=== PATIENT | female | born 1980 | race Caucasian/White ===

== ENCOUNTER 2018-03-20 18:26 | Inpatient (IN) | payer MEDICAID, OTHER ==
[2018-03-20] MEDS ORDERED: NACL 0.9% 1000 ML 1,000 ML IV ONE (18:42)
--- NOTE | 2018-03-20 19:12 | Emergency Department Report ---
ED Syncope HPI - General Chief Complaint: Syncope Stated Complaint: AMS Time Seen by Provider: 03/20/18 18:41 Source: patient, family, old records Exam Limitations: no limitations - History of Present Illness Initial Comments: 37 yo female with a past medical history multiple DVTs and PEs, gestational diabetes, and previously diagnosed hypothyroidism presents to Hospital complaints of syncopal episode while at [employer]. Patient was brought in by her by private vehicle. He states that they were in a process of eating, she left to go to the bathroom but was taking longer to usual. He then received a text from her stating that she does not feel good so he went to check on her. He found her unresponsive and pale appearing on the bathroom floor. He placed her in his car then drove her to the hospital. Her Accu-Chek was 154 upon arrival. She is alert and oriented 3 but appears generalized weak and fatigued. She reports for the past 3 days she's had mild to moderate intermittent left-sided sticking chest pain lasted for only a second at a time before resolving. No aggravating or alleviating factors reported. Positive nausea without vomiting. She states today she began to have some shortness of breath. Patient reports that she was first diagnosed with a blood clot during her 8 years ago and has had recurrent blood clots since. She stopped taking anticoagulants approximately 2 years ago because she stopped following up with a physician. She does not have a filter. She also states she used to have recurrent syncopal episodes with the last approximately 2 years ago. Patient also reports that she no longer takes Synthroid or diabetes medications since her last delivery 2 years ago. She is not currently on control, denies recent travel, calf tenderness, edema, leg asymmetry, or diagnosis of underlying blood clotting disorder. As per medical record d/c summary 09/01/15: History of antiphospholipid antibody syndrome Pt admitted for near syncopal episodes and s/p work up with Cardiology, hematology, and neurology. Neuro dx was TIAs. - Related Data Allergies/Adverse Reactions: Allergies No Known Allergies Allergy (Verified 12/12/15 21:27) Home Medications: Ambulatory Orders Aspirin [Aspirin BABY CHEW TAB] 81 mg PO QDAY 08/27/15 Levothyroxine [Synthroid] 50 mcg PO DAILY 12/06/15 Pnv,Calcium 72/Iron/Folic Acid [Pnv Plus Multivit Tab] 1 tab PO DAILY 12/06/15 glyBURIDE [Glyburide] 2 tab PO BID 12/06/15 Enoxaparin [Lovenox] 40 mg SQ QDAY #30 syringe 12/21/15 ED Review of Systems ROS: Stated complaint: AMS Other details as noted in HPI Comment: All other systems reviewed and negative ED Past Medical Hx - Past Medical History Hx Hypertension: No Hx Congestive Heart Failure: No Hx Diabetes: Yes (gestational) Hx Deep Vein Thrombosis: No Hx Renal Disease: No Hx Sickle Cell Disease: No Hx Seizures: No Hx Asthma: No Hx COPD: No Hx HIV: No Additional medical history: DVT, pe. hypothyrodism - Social History Smoking Status: Never Smoker Substance Use Type: None - Medications Home Medications: Home Medications Medication Instructions Recorded Confirmed Last Taken Type Aspirin [Aspirin BABY CHEW TAB] 81 mg PO QDAY 08/27/15 12/18/15 12/16/15 History Levothyroxine [Synthroid] 50 mcg PO DAILY 12/06/15 12/18/15 12/17/15 History Pnv,Calcium 72/Iron/Folic Acid 1 tab PO DAILY 12/06/15 12/18/15 12/17/15 History [Pnv Plus Multivit Tab] glyBURIDE [Glyburide] 2 tab PO BID 12/06/15 12/18/15 12/17/15 History Enoxaparin [Lovenox] 40 mg SQ QDAY #30 syringe 12/21/15 Unknown Rx ED Physical Exam - General Limitations: No Limitations - Other Other exam information: General: No limitations, patient is alert in no acute distress Head exam: Atraumatic, normocephalic Eyes exam: Normal appearance ENT: Moist mucous membrane, normal oropharynx Neck exam: Normal inspection, full range of motion, no meningismus nontender Respiratory exam: Clear to auscultation bilateral, no wheezes, rales, crackles, minimal left anterior chest wall tenderness Cardiovascular: Normal rate and rhythm, normal heart sounds Abdomen: Soft, nondistended, and nontender, with normal bowel sounds, no rebound, or guarding Extremity: Full range of motion normal inspection no deformity, no calf tenderness or edema. Back: Normal Inspection, full range of motion, no tenderness Neurologic: Alert, oriented x3, cranial nerves intact, no motor or sensory deficit Psychiatric: normal affect, normal mood Skin: Warm, dry, intact ED Course Vital Signs 03/20/18 03/20/18 03/20/18 18:27 18:40 18:48 Temperature 98 F Pulse Rate 88 78 Respiratory 18 20 Rate Blood Pressure 119/69 Blood Pressure [Left] O2 Sat by Pulse 100 98 Oximetry 03/20/18 03/20/18 03/20/18 19:43 19:46 19:48 Temperature 98.4 F Pulse Rate 85 84 83 Respiratory 19 18 21 Rate Blood Pressure 109/56 109/56 Blood Pressure 106/62 [Left] O2 Sat by Pulse 98 96 97 Oximetry ED Medical Decision Making - Lab Data Result diagrams: 03/20/18 19:09 03/20/18 19:09 Lab Results 03/20/18 03/20/18 03/20/18 Range/Units 19:09 19:09 19:09 WBC 8.3 (4.5-11.0) K/mm3 RBC 4.44 (3.65-5.03) M/mm3 Hgb 13.7 (10.1-14.3) gm/dl Hct 38.8 (30.3-42.9) % MCV 88 (79-97) fl MCH 31 (28-32) pg MCHC 35 H (30-34) % RDW 12.3 L (13.2-15.2) % Plt Count 296 (140-440) K/mm3 Lymph % (Auto) 21.7 (13.4-35.0) % [place] % (Auto) 4.9 (0.0-7.3) % Eos % (Auto) 0.9 (0.0-4.3) % Baso % (Auto) 0.5 (0.0-1.8) % Lymph # 1.8 (1.2-5.4) K/mm3 [place] # 0.4 (0.0-0.8) K/mm3 Eos # 0.1 (0.0-0.4) K/mm3 Baso # 0.0 (0.0-0.1) K/mm3 Seg Neutrophils % 72.0 H (40.0-70.0) % Seg Neutrophils # 6.0 (1.8-7.7) K/mm3 D-Dimer (0-234) ng/mlDDU Sodium 138 (137-145) mmol/L Potassium 3.7 (3.6-5.0) mmol/L Chloride 98.8 (98-107) mmol/L Carbon Dioxide 28 (22-30) mmol/L Anion Gap 15 mmol/L BUN 10 (7-17) mg/dL Creatinine 0.6 L (0.7-1.2) mg/dL Estimated GFR > 60 ml/min BUN/Creatinine Ratio 17 % Glucose 150 H (65-100) mg/dL Calcium 9.3 (8.4-10.2) mg/dL Total Bilirubin 0.60 (0.1-1.2) mg/dL AST 32 (5-40) units/L ALT 45 (7-56) units/L Alkaline Phosphatase 95 (35-129) units/L Total Protein 6.9 (6.3-8.2) g/dL Albumin 4.2 (3.9-5) g/dL Albumin/Globulin Ratio 1.6 % TSH 4.770 H (0.270-4.200) mlU/mL HCG, Quant (0-4) mIU/mL Plasma/Serum Alcohol (0-0.07) % 03/20/18 03/20/18 03/20/18 Range/Units 19:09 19:09 19:09 WBC (4.5-11.0) K/mm3 RBC (3.65-5.03) M/mm3 Hgb (10.1-14.3) gm/dl Hct (30.3-42.9) % MCV (79-97) fl MCH (28-32) pg MCHC (30-34) % RDW (13.2-15.2) % Plt Count (140-440) K/mm3 Lymph % (Auto) (13.4-35.0) % [place] % (Auto) (0.0-7.3) % Eos % (Auto) (0.0-4.3) % Baso % (Auto) (0.0-1.8) % Lymph # (1.2-5.4) K/mm3 [place] # (0.0-0.8) K/mm3 Eos # (0.0-0.4) K/mm3 Baso # (0.0-0.1) K/mm3 Seg Neutrophils % (40.0-70.0) % Seg Neutrophils # (1.8-7.7) K/mm3 D-Dimer 181.54 (0-234) ng/mlDDU Sodium (137-145) mmol/L Potassium (3.6-5.0) mmol/L Chloride (98-107) mmol/L Carbon Dioxide (22-30) mmol/L Anion Gap mmol/L BUN (7-17) mg/dL Creatinine (0.7-1.2) mg/dL Estimated GFR ml/min BUN/Creatinine Ratio % Glucose (65-100) mg/dL Calcium (8.4-10.2) mg/dL Total Bilirubin (0.1-1.2) mg/dL AST (5-40) units/L ALT (7-56) units/L Alkaline Phosphatase (35-129) units/L Total Protein (6.3-8.2) g/dL Albumin (3.9-5) g/dL Albumin/Globulin Ratio % TSH (0.270-4.200) mlU/mL HCG, Quant < 2 (0-4) mIU/mL Plasma/Serum Alcohol < 0.01 (0-0.07) % - EKG Data -: EKG Interpreted by Me (low voltage precordial leadas) EKG shows normal: sinus rhythm, axis (qrs axis 18), QRS complexes (qrsd 91), ST- T waves (flat ant lat t waves, no stemi) Rate: normal (83) - EKG Data When compared to previous EKG there are: no significant change (08/2016 (no change except ant lat t waves more upright and less flat at this time)) - Radiology Data Radiology results: report reviewed read by radiologist CT head: no acute sinus CT angio chest: No evidence of pulmonary embolus - Medical Decision Making Syncope Cause unknown at this time No signs of PE or acute intracranial abnormalities Labs, EKG, UA and also all unremarkable. Patient was admitted in the past for similar symptoms with last cardiac and neurologic workup performed in 2014. Pt received 1 NS in ed, toradol, and zofran pt will be admitted for obs and further eval - Differential Diagnosis vasovagal, anemia, PE, arrhythmia, /ectopic, hypoglycemia Critical Care Time: No Critical care attestation.: If time is entered above; I have spent that time in minutes in the direct care of this critically ill patient, excluding procedure time. ED Disposition Clinical Impression: Syncope, Elevated TSH Disposition: OP ADMIT IP TO THIS HOSP Is pt being admited?: Yes Condition: Stable Time of Disposition: 22:07 (Dr [place]/hosp)
[2018-03-20 19:28] LABS: Basophils % (Auto) 0.5 % (0.0-1.8); Eosinophils # (Auto) 0.1 K/mm3 (0.0-0.4); Eosinophils % (Auto) 0.9 % (0.0-4.3); Hematocrit 38.8 % (30.3-42.9); Hemoglobin 13.7 gm/dl (10.1-14.3); Lymphocytes # (Auto) 1.8 K/mm3 (1.2-5.4); Lymphocytes % (Auto) 21.7 % (13.4-35.0); Mean Corpuscular HGB Conc 35 % (30-34); Mean Corpuscular Hemoglobin 31 pg (28-32); Mean Corpuscular Volume 88 fl (79-97); Monocytes # (Auto) 0.4 K/mm3 (0.0-0.8); Monocytes % (Auto) 4.9 % (0.0-7.3); Platelet Count 296 K/mm3 (140-440); Red Blood Count 4.44 M/mm3 (3.65-5.03); Red Cell Distribution Width 12.3 % (13.2-15.2)
[2018-03-20 19:49] LABS: Alanine Aminotransferase 45 units/L (7-56); Albumin 4.2 g/dL (3.9-5); BUN/Creatinine Ratio 17; Blood Urea Nitrogen 10 mg/dL (7-17); Calcium 9.3 mg/dL (8.4-10.2); Hemolysis Index 5
[2018-03-20] MEDS ORDERED: TORADOL IV ONE (19:57)
[2018-03-20] MEDS ORDERED: ZOFRAN IV ONE (19:57)
[2018-03-20] MEDS ORDERED: SODIUM CHLORIDE FLUSH SYRINGE 10 ML IV PRN (22:45)
[2018-03-20] MEDS ORDERED: ZOFRAN IV PRN (22:45)
[2018-03-20] MEDS ORDERED: TYLENOL PO PRN (22:45)
[2018-03-20] MEDS ORDERED: PERCOCET 5/325 PO PRN (22:45)
--- NOTE | 2018-03-20 22:49 | History and Physical Report ---
History of Present Illness Date of examination: 03/20/18 History of present illness: 37-year-old, history of DVT, PE, recurrent syncope in the past comes emergency room physician was at a restaurant and did not feel well. She went to the bathroom and had a syncopal episode, the stated that lasted for at least 30 minutes. Also complaining of pain in her epigastric area which she describes a sharp pain, constant, intensity 4/10, no radiation, she can identify exacerbating or relieving factor. Patient states she had not had any syncopal episodes since the last 2 years. Denies vomiting, diaphoresis, palpitation, nausea Review of systems Constitutional: no weight loss, chills Ears, eyes, nose, mouth and throat: no nasal congestion, no nasal discharge, no sinus pressure, no vision change, no red eye. Neck: No neck pain or rigidity. Cardiovascular: no palpitations Respiratory: No cough, shortness of breath Gastrointestinal: no abdominal pain, hematochezia Genitourinary : no dysuria, frequency , no hematuria Musculoskeletal: no joint swelling or muscle ache Integumentary: no rash, no pruritis Neurological: no parathesias, no numbness, no focal weakness Endocrine: no cold or heat intolerance, no polyuria or polydipsia Hematologic/Lymphatic: no easy bruising, no easy bleeding, no gland swelling Allergic/Immunologic: no urticaria, no angioedema. PAST MEDICAL HISTORY: DVT, PE, recurrent syncope PAST SURGICAL HISTORY: Cholecystectomy SOCIAL HISTORY: Denies alcohol, tobacco, drugs FAMILY HISTORY: Hypertension Medications and Allergies Allergies Allergy/AdvReac Type Severity Reaction Status Date / Time No Known Allergies Allergy Verified 12/12/15 21:27 Home Medications Medication Instructions Recorded Confirmed Last Taken Type No Known Home Medications [No 03/20/18 03/20/18 Unknown History Reported Home Medications] Active Meds: Active Medications Acetaminophen (Tylenol) 650 mg PO Q4H PRN PRN Reason: Pain MILD(1-3)/Fever >100.5/MCCARTY Enoxaparin Sodium (Lovenox) 30 mg SUB-Q QDAY JUDAH Ondansetron HCl (Zofran) 4 mg IV Q8H PRN PRN Reason: Nausea And Vomiting Oxycodone/Acetaminophen (Percocet 5/325) 1 tab PO Q6H PRN PRN Reason: Pain, Moderate (4-6) Sodium Chloride (Sodium Chloride Flush Syringe 10 Ml) 10 ml IV BID JUDAH Sodium Chloride (Sodium Chloride Flush Syringe 10 Ml) 10 ml IV PRN PRN PRN Reason: LINE FLUSH Exam - Physical Exam Narrative exam: Gen. appearance: Patient lying in bed, no apparent distress HEENT: Normocephalic, atraumatic, pupils equally round and reactive to light, extraocular movement intact, and no sclericterus,. No JVD or thyromegaly or nodule,neck supple, no carotid bruit ,mucous membranes moist, no exudate or erythema Heart: S1, S2, regular rate and rhythm Lungs: Clear to auscultation bilaterally, breathing comfortable Abdomen: Positive bowel sounds, nontender, nondistended, no organomegaly Extremity: No edema, cyanosis, clubbing Skin: No rash, nodules, warm, dry Neuro: Oriented 3, cranial nerves II-12 intact, speech is fluent, motor and sensory intact - Constitutional Vitals: Temp Pulse Resp BP Pulse Ox 98.4 F 83 21 106/62 97 03/20/18 19:48 03/20/18 19:48 03/20/18 19:48 03/20/18 19:48 03/20/18 19:48 Results - Labs CBC & Chem 7: 03/20/18 19:09 03/20/18 19:09 Labs: Abnormal lab results 03/20/18 03/20/18 03/20/18 Range/Units 19:09 19:09 19:09 MCHC 35 H (30-34) % RDW 12.3 L (13.2-15.2) % Seg Neutrophils % 72.0 H (40.0-70.0) % Creatinine 0.6 L (0.7-1.2) mg/dL Glucose 150 H (65-100) mg/dL TSH 4.770 H (0.270-4.200) mlU/mL - Imaging and Cardiology CT scan - chest: report reviewed CT Scan - head: report reviewed Assessment and Plan Assessment Recurrent syncope Plan Admit to medicine Check cardiac enzymes, echo, consult cardiology DVT prophylaxis
[2018-03-20 23:58] LABS: Creatine Kinase MB < 1.0 ng/mL (0.0-4.0)
[2018-03-21 01:23] LABS: Bacteria,Urine 1+ /HPF (Negative); Bilirubin,Urine NEG (Negative); Blood,Urine NEG (Negative); Color,Urine Yellow (Yellow); Mucus,Urine FEW /HPF; Protein,Urine <15 mg/dL mg/dL (Negative); Urobilinogen,Urine < 2.0 mg/dL (<2.0)
[2018-03-21 01:35] LABS: Amphetamine Screen,Urine PRESUMPTIVE NEGATIVE; Benzodiazepines Screen,Urine PRESUMPTIVE NEGATIVE; Cannabinoid Screen,Urine PRESUMPTIVE NEGATIVE; Cocaine Screen,Urine PRESUMPTIVE NEGATIVE; Methadone Screen,Urine PRESUMPTIVE NEGATIVE; Opiate Screen,Urine PRESUMPTIVE NEGATIVE
[2018-03-21 06:16] LABS: Basophils # (Auto) 0.1 K/mm3 (0.0-0.1); Basophils % (Auto) 0.7 % (0.0-1.8); Eosinophils # (Auto) 0.1 K/mm3 (0.0-0.4); Eosinophils % (Auto) 1.7 % (0.0-4.3); Hematocrit 37.6 % (30.3-42.9); Hemoglobin 12.8 gm/dl (10.1-14.3); Lymphocytes % (Auto) 34.7 % (13.4-35.0); Mean Corpuscular HGB Conc 34 % (30-34); Mean Corpuscular Hemoglobin 31 pg (28-32); Mean Corpuscular Volume 89 fl (79-97); Monocytes # (Auto) 0.6 K/mm3 (0.0-0.8); Platelet Count 279 K/mm3 (140-440); Red Blood Count 4.21 M/mm3 (3.65-5.03); Red Cell Distribution Width 12.7 % (13.2-15.2)
[2018-03-21 06:36] LABS: BUN/Creatinine Ratio 16; Blood Urea Nitrogen 8 mg/dL (7-17); Calcium 8.8 mg/dL (8.4-10.2); Hemolysis Index 2
[2018-03-21 06:47] LABS: Creatine Kinase MB < 1.0 ng/mL (0.0-4.0)
[2018-03-21] MEDS: LOVENOX SUB-Q SCH (10:44)
[2018-03-21] MEDS: SODIUM CHLORIDE FLUSH SYRINGE 10 ML IV SCH (10:45)
--- NOTE | 2018-03-21 12:23 | Progress Note ---
<RIGOBERTO LOPEZ - Last Filed: 03/21/18 13:39> Assessment and Plan Assessment and plan: Patient is 37 year old woman who presented to the ED after having a syncopal episode which lasted about 30 minutes. Recurrent syncope Head CT results pending, Neurology consulted Epigastric abdominal pain Ct abdomen results pending Hyperglycemia A1C ordered Subclinical hypothyroidism Elevated TSH, T4 normal DVT prophylaxis Lovenox History Interval history: Pt seen and examined. No new complaints today. Labs, chart notes and nursing notes reviewed. Hospitalist Physical - Constitutional Vitals: Temp Pulse Resp BP Pulse Ox 97.8 F 75 18 109/58 95 03/21/18 08:04 03/21/18 08:12 03/21/18 08:04 03/21/18 08:04 03/21/18 08:04 General appearance: Present: no acute distress - EENT Eyes: Present: PERRL, EOM intact ENT: hearing intact, clear oral mucosa - Neck Neck: Present: supple, normal ROM - Respiratory Respiratory effort: normal Respiratory: bilateral: CTA - Cardiovascular Rhythm: regular Heart Sounds: Present: S1 & S2 - Extremities Extremities: no ischemia, No edema - Abdominal General gastrointestinal: soft, non-tender, non-distended - Integumentary Integumentary: Present: clear, warm, dry - Psychiatric Psychiatric: appropriate mood/affect, intact judgment & insight, cooperative - Neurologic Neurologic: CNII-XII intact, moves all extremities - Allied Health Allied health notes reviewed: nursing Results - Labs CBC & Chem 7: 03/21/18 05:39 03/21/18 05:39 Labs: Laboratory Last Values WBC 8.6 K/mm3 (4.5-11.0) 03/21/18 05:39 RBC 4.21 M/mm3 (3.65-5.03) 03/21/18 05:39 Hgb 12.8 gm/dl (10.1-14.3) 03/21/18 05:39 Hct 37.6 % (30.3-42.9) 03/21/18 05:39 MCV 89 fl (79-97) 03/21/18 05:39 MCH 31 pg (28-32) 03/21/18 05:39 MCHC 34 % (30-34) 03/21/18 05:39 RDW 12.7 % (13.2-15.2) L 03/21/18 05:39 Plt Count 279 K/mm3 (140-440) 03/21/18 05:39 Lymph % (Auto) 34.7 % (13.4-35.0) 03/21/18 05:39 [place] % (Auto) 7.0 % (0.0-7.3) 03/21/18 05:39 Eos % (Auto) 1.7 % (0.0-4.3) 03/21/18 05:39 Baso % (Auto) 0.7 % (0.0-1.8) 03/21/18 05:39 Lymph # 3.0 K/mm3 (1.2-5.4) 03/21/18 05:39 [place] # 0.6 K/mm3 (0.0-0.8) 03/21/18 05:39 Eos # 0.1 K/mm3 (0.0-0.4) 03/21/18 05:39 Baso # 0.1 K/mm3 (0.0-0.1) 03/21/18 05:39 Seg Neutrophils % 55.9 % (40.0-70.0) 03/21/18 05:39 Seg Neutrophils # 4.8 K/mm3 (1.8-7.7) 03/21/18 05:39 D-Dimer 181.54 ng/mlDDU (0-234) 03/20/18 19:09 Sodium 141 mmol/L (137-145) 03/21/18 05:39 Potassium 4.1 mmol/L (3.6-5.0) 03/21/18 05:39 Chloride 105.1 mmol/L (98-107) 03/21/18 05:39 Carbon Dioxide 24 mmol/L (22-30) 03/21/18 05:39 Anion Gap 16 mmol/L 03/21/18 05:39 BUN 8 mg/dL (7-17) 03/21/18 05:39 Creatinine 0.5 mg/dL (0.7-1.2) L 03/21/18 05:39 Estimated GFR > 60 ml/min 03/21/18 05:39 BUN/Creatinine Ratio 16 % 03/21/18 05:39 Glucose 96 mg/dL (65-100) 03/21/18 05:39 Calcium 8.8 mg/dL (8.4-10.2) 03/21/18 05:39 Total Bilirubin 0.60 mg/dL (0.1-1.2) 03/20/18 19:09 AST 32 units/L (5-40) 03/20/18 19:09 ALT 45 units/L (7-56) 03/20/18 19:09 Alkaline Phosphatase 95 units/L (35-129) 03/20/18 19:09 Total Creatine Kinase 98 units/L (30-135) 03/21/18 05:39 CK-MB (CK-2) < 1.0 ng/mL (0.0-4.0) 03/21/18 05:39 CK-MB (CK-2) Rel Index 1.0 (0-4) 03/21/18 05:39 Troponin T < 0.010 ng/mL (0.00-0.029) 03/21/18 05:39 Total Protein 6.9 g/dL (6.3-8.2) 03/20/18 19:09 Albumin 4.2 g/dL (3.9-5) 03/20/18 19:09 Albumin/Globulin Ratio 1.6 % 03/20/18 19:09 TSH 4.770 mlU/mL (0.270-4.200) H 03/20/18 19:09 HCG, Quant < 2 mIU/mL (0-4) 03/20/18 19:09 Urine Color Yellow (Yellow) 03/21/18 00:34 Urine Turbidity Clear (Clear) 03/21/18 00:34 Urine pH 7.0 (5.0-7.0) 03/21/18 00:34 Ur Specific Counce 1.039 (1.003-1.030) H 03/21/18 00:34 Urine Protein <15 mg/dl mg/dL (Negative) 03/21/18 00:34 Urine Glucose (UA) Neg mg/dL (Negative) 03/21/18 00:34 Urine Ketones Neg mg/dL (Negative) 03/21/18 00:34 Urine Blood Neg (Negative) 03/21/18 00:34 Urine Nitrite Neg (Negative) 03/21/18 00:34 Urine Bilirubin Neg (Negative) 03/21/18 00:34 Urine Urobilinogen < 2.0 mg/dL (<2.0) 03/21/18 00:34 Ur Leukocyte Esterase Neg (Negative) 03/21/18 00:34 Urine WBC (Auto) 2.0 /HPF (0.0-6.0) 03/21/18 00:34 Urine RBC (Auto) 3.0 /HPF (0.0-6.0) 03/21/18 00:34 U Epithel Cells (Auto) 29.0 /HPF (0-13.0) H 03/21/18 00:34 Urine Bacteria (Auto) 1+ /HPF (Negative) 03/21/18 00:34 Urine Mucus Few /HPF 03/21/18 00:34 Urine Opiates Screen Presumptive negative 03/21/18 00:34 Urine Methadone Screen Presumptive negative 03/21/18 00:34 Ur Barbiturates Screen Presumptive negative 03/21/18 00:34 Ur Phencyclidine Scrn Presumptive negative 03/21/18 00:34 Ur Amphetamines Screen Presumptive negative 03/21/18 00:34 U Benzodiazepines Scrn Presumptive negative 03/21/18 00:34 Urine Cocaine Screen Presumptive negative 03/21/18 00:34 U Marijuana (THC) Screen Presumptive negative 03/21/18 00:34 Drugs of Abuse Note Disclamer 03/21/18 00:34 Plasma/Serum Alcohol < 0.01 % (0-0.07) 03/20/18 19:09 <SHANEL GARCIA - Last Filed: 03/21/18 17:07> Assessment and Plan Assessment and plan: I saw and evaluated the patient. I agree with the findings and the plan of care as documented in the PA~note, with the following corrections and additions. Hospitalist Physical - Constitutional Vitals: Temp Pulse Resp BP Pulse Ox 98.0 F 82 20 109/59 98 03/21/18 15:22 03/21/18 15:22 03/21/18 15:22 03/21/18 15:22 03/21/18 15:22 Results - Labs CBC & Chem 7: 03/21/18 05:39 03/21/18 05:39 Labs: Laboratory Last Values WBC 8.6 K/mm3 (4.5-11.0) 03/21/18 05:39 RBC 4.21 M/mm3 (3.65-5.03) 03/21/18 05:39 Hgb 12.8 gm/dl (10.1-14.3) 03/21/18 05:39 Hct 37.6 % (30.3-42.9) 03/21/18 05:39 MCV 89 fl (79-97) 03/21/18 05:39 MCH 31 pg (28-32) 03/21/18 05:39 MCHC 34 % (30-34) 03/21/18 05:39 RDW 12.7 % (13.2-15.2) L 03/21/18 05:39 Plt Count 279 K/mm3 (140-440) 03/21/18 05:39 Lymph % (Auto) 34.7 % (13.4-35.0) 03/21/18 05:39 [place] % (Auto) 7.0 % (0.0-7.3) 03/21/18 05:39 Eos % (Auto) 1.7 % (0.0-4.3) 03/21/18 05:39 Baso % (Auto) 0.7 % (0.0-1.8) 03/21/18 05:39 Lymph # 3.0 K/mm3 (1.2-5.4) 03/21/18 05:39 [place] # 0.6 K/mm3 (0.0-0.8) 03/21/18 05:39 Eos # 0.1 K/mm3 (0.0-0.4) 03/21/18 05:39 Baso # 0.1 K/mm3 (0.0-0.1) 03/21/18 05:39 Seg Neutrophils % 55.9 % (40.0-70.0) 03/21/18 05:39 Seg Neutrophils # 4.8 K/mm3 (1.8-7.7) 03/21/18 05:39 D-Dimer 181.54 ng/mlDDU (0-234) 03/20/18 19:09 Sodium 141 mmol/L (137-145) 03/21/18 05:39 Potassium 4.1 mmol/L (3.6-5.0) 03/21/18 05:39 Chloride 105.1 mmol/L (98-107) 03/21/18 05:39 Carbon Dioxide 24 mmol/L (22-30) 03/21/18 05:39 Anion Gap 16 mmol/L 03/21/18 05:39 BUN 8 mg/dL (7-17) 03/21/18 05:39 Creatinine 0.5 mg/dL (0.7-1.2) L 03/21/18 05:39 Estimated GFR > 60 ml/min 03/21/18 05:39 BUN/Creatinine Ratio 16 % 03/21/18 05:39 Glucose 96 mg/dL (65-100) 03/21/18 05:39 Hemoglobin A1c 5.7 % (4-6) 03/21/18 05:39 Calcium 8.8 mg/dL (8.4-10.2) 03/21/18 05:39 Total Bilirubin 0.60 mg/dL (0.1-1.2) 03/20/18 19:09 AST 32 units/L (5-40) 03/20/18 19:09 ALT 45 units/L (7-56) 03/20/18 19:09 Alkaline Phosphatase 95 units/L (35-129) 03/20/18 19:09 Total Creatine Kinase 98 units/L (30-135) 03/21/18 05:39 CK-MB (CK-2) < 1.0 ng/mL (0.0-4.0) 03/21/18 05:39 CK-MB (CK-2) Rel Index 1.0 (0-4) 03/21/18 05:39 Troponin T < 0.010 ng/mL (0.00-0.029) 03/21/18 05:39 Total Protein 6.9 g/dL (6.3-8.2) 03/20/18 19:09 Albumin 4.2 g/dL (3.9-5) 03/20/18 19:09 Albumin/Globulin Ratio 1.6 % 03/20/18 19:09 TSH 4.770 mlU/mL (0.270-4.200) H 03/20/18 19:09 Free T4 1.09 ng/dL (0.76-1.46) 03/21/18 11:09 HCG, Quant < 2 mIU/mL (0-4) 03/20/18 19:09 Urine Color Yellow (Yellow) 03/21/18 00:34 Urine Turbidity Clear (Clear) 03/21/18 00:34 Urine pH 7.0 (5.0-7.0) 03/21/18 00:34 Ur Specific Counce 1.039 (1.003-1.030) H 03/21/18 00:34 Urine Protein <15 mg/dl mg/dL (Negative) 03/21/18 00:34 Urine Glucose (UA) Neg mg/dL (Negative) 03/21/18 00:34 Urine Ketones Neg mg/dL (Negative) 03/21/18 00:34 Urine Blood Neg (Negative) 03/21/18 00:34 Urine Nitrite Neg (Negative) 03/21/18 00:34 Urine Bilirubin Neg (Negative) 03/21/18 00:34 Urine Urobilinogen < 2.0 mg/dL (<2.0) 03/21/18 00:34 Ur Leukocyte Esterase Neg (Negative) 03/21/18 00:34 Urine WBC (Auto) 2.0 /HPF (0.0-6.0) 03/21/18 00:34 Urine RBC (Auto) 3.0 /HPF (0.0-6.0) 03/21/18 00:34 U Epithel Cells (Auto) 29.0 /HPF (0-13.0) H 03/21/18 00:34 Urine Bacteria (Auto) 1+ /HPF (Negative) 03/21/18 00:34 Urine Mucus Few /HPF 03/21/18 00:34 Urine Opiates Screen Presumptive negative 03/21/18 00:34 Urine Methadone Screen Presumptive negative 03/21/18 00:34 Ur Barbiturates Screen Presumptive negative 03/21/18 00:34 Ur Phencyclidine Scrn Presumptive negative 03/21/18 00:34 Ur Amphetamines Screen Presumptive negative 03/21/18 00:34 U Benzodiazepines Scrn Presumptive negative 03/21/18 00:34 Urine Cocaine Screen Presumptive negative 03/21/18 00:34 U Marijuana (THC) Screen Presumptive negative 03/21/18 00:34 Drugs of Abuse Note Disclamer 03/21/18 00:34 Plasma/Serum Alcohol < 0.01 % (0-0.07) 03/20/18 19:09
--- NOTE | 2018-03-21 13:41 | Event Note ---
Date: 03/21/18 Detailed cardiology consultation dictated. A: #1: Recurrent syncope / ? TIA / ? seizure - head CT with no acute findings per ED MD note #2: H/o DVT and PE - chest CTA negative for PE per ED MD note #3: ? h/o antiphospholipid antibody syndrome - pt stopped taking anticoagulation 1.5 years ago #4: H/o medical noncompliance P: F/u echo. Cont telemetry. Recommend neurology consultation per primary. Opal VALADEZ NP / DR. KATZ
--- NOTE | 2018-03-21 14:31 | Cat Scan Report ---
FINAL REPORT PROCEDURE: CT ANGIO CHEST TECHNIQUE: Computerized tomographic angiography of the chest was performed after the IV injection of iodinated nonionic contrast including image processing. The image data was postprocessed using 2-dimensional multiplanar reformatted (MPR) and 3-dimensional (MIP and/or volume rendered) techniques. HISTORY: syncope hx of pe/dvt/med noncompliance COMPARISON: No prior studies are available for comparison. FINDINGS: Heart and pericardium: Normal. Thoracic aorta: Normal. Pulmonary vasculature: Normal. Lymph nodes: No enlarged thoracic lymph nodes. Lungs: Normal. Pleural space: No effusion, thickening, or pneumothorax. Musculoskeletal structures: No significant abnormality. Upper abdominal structures: There has been cholecystectomy. IMPRESSION: No evidence of pulmonary emboli
--- NOTE | 2018-03-21 14:31 | Cat Scan Report ---
FINAL REPORT PROCEDURE: CT HEAD/BRAIN WO CON TECHNIQUE: Computerized tomography of the head was performed without contrast material. HISTORY: syncope COMPARISON: 08/27/2015 FINDINGS: There is no CT evidence of intracranial mass, hemorrhage, acute territorial infarction, or hydrocephalus. Calvarium is intact. The visualized paranasal sinuses and mastoids are aerated. IMPRESSION: No CT evidence of acute abnormality
[2018-03-22] MEDS: CHLORASEPTIC MM PRN ×2 (01:18→10:29)
[2018-03-22] MEDS: SODIUM CHLORIDE FLUSH SYRINGE 10 ML IV SCH ×2 (01:20→10:27)
--- NOTE | 2018-03-22 06:04 | Consultation ---
REQUESTING PHYSICIAN: Ying Sanchez M.D. HISTORY OF PRESENT ILLNESS: This is a 37-year-old female who is now admitted to the hospital with complaints of syncope for further evaluation and management. History is now obtained from the patient as well as a review of records. According to the patient on 03/20/2018, the patient went to a restaurant with her , but while there she just did not feel well. So she went up to the bathroom, but then she did not return for a while and so her got concerned and went in to check on her. The patient apparently was found unconscious on the floor. According to the discretion of the , the patient was very rigid and stiff and mouth was open and she could not close her mouth even when they tried. On further questioning, the patient also stated that she lost control of her bladder, but when she regained consciousness, she did not have any chest pain or unusual shortness of breath. No headache. No nausea or vomiting. She just felt tired and generalized aching type of sensation. The patient denied any history of chest pain, orthopnea, PND, edema of feet, palpitations, claudication, dizziness. She does have a history of multiple episodes of syncope, but the last one was almost 2 years ago for which she was admitted and evaluated. Apparently, she has had extensive workup done. No obvious etiology determined. Past medical history also includes pulmonary embolism and at the time, the patient was told to have antiphospholipid antibody syndrome. The patient was placed on anticoagulation, but the patient apparently stopped taking the anticoagulation 1-1/2 to 2 years ago. She has not been to any physician either, but she has been doing well until this episode. The patient also gives history of gestational diabetes. She was told to have hypothyroidism, but she is not taking any medications for either. No definite history of any hypertension. No known cardiac problems in the past. SOCIAL HISTORY: The patient is a nonsmoker and nonalcoholic. PAST SURGICAL HISTORY: Cholecystectomy. PAST MEDICAL HISTORY: As noted, history of DVT, pulmonary embolism and recurrent syncope. FAMILY HISTORY: Hypertension noted. MEDICATIONS: At the time of admission, the patient was not on any medications. REVIEW OF SYSTEMS: CARDIOVASCULAR: As described above. RESPIRATORY. The patient denied any history of wheezing or asthma. GI or : No complaints. PHYSICAL EXAMINATION: GENERAL: This is a 37-year-old female, well built, well nourished, no acute distress at the present time. The patient is conscious, alert, oriented, afebrile. VITAL SIGNS: Normal and stable. SKIN: Warm and dry. HEENT: Pupils reactive. NECK: Supple. Both carotids are well palpable without evidence of any bruit. No JVD. CHEST: Lungs are clear. HEART: S1, S2 heard well. No significant murmur or gallop. ABDOMEN: Soft and nontender. EXTREMITIES: No edema, no calf tenderness. Good pedal pulse. NEUROLOGIC: Evaluation was grossly within normal limits. RECTAL AND PELVIC: Examination not done at this time. IMAGING DATA: EKG done, showed normal sinus rhythm and no acute changes. LABORATORY DATA: The patient's CBC and CMP were within normal limits. The patient's TSH was mildly elevated at 4.77 with normal being up to 4.5. D-dimer was in normal state. The patient had a CT scan of the head done, which was reported normal. The patient also had CTA of the chest done, which showed no definite evidence of any pulmonary embolism. DIAGNOSES: 1. Syncope ?cause, rule out pulmonary embolism and rule out seizure activity. 2. History of deep venous thrombosis and pulmonary embolism. 3. History of antiphospholipid antibody syndrome. DISCUSSION: A 37-year-old female who is now admitted to the hospital with syncope for further evaluation and management. The patient's history is suggestive of seizure episode with being very stiff initially and then losing control of the bladder, etc. I doubt cardiac etiology. There is no evidence of any pulmonary embolism at this time, but we will monitor closely. Neurology consult is requested. If the patient was documented to have antiphospholipid antibody in the past and has history of DVT and pulmonary embolism, then she should be on anticoagulation. I explained this to the patient. She has expressed understanding. The patient also was told that her thyroid function needs to be monitored and if it is abnormal, then she needs treatment for that too. Keep her blood sugar under control with diet and exercise. Rest of the plan as per orders. Thank you very much for this consultation. We will follow the patient along with you. JOB# [id number] KMM/ADELAIDE
--- NOTE | 2018-03-22 09:20 | Consultation ---
NEUROLOGICAL CONSULTATION REQUESTING PHYSICIAN: Ying Sanchez M.D. REASON FOR CONSULTATION: Passing out spell. HISTORY OF PRESENT ILLNESS: Given by the patient and supplemented slightly by the children who were at the bedside. The patient is a 37-year-old right-handed I[place]ian female who had passing out spell. This happened yesterday. She ate a little bit at about 4:00 o'clock and then they went to restaurant and thereafter they sat down. While she was eating, she noticed that she was feeling dizzy and not feeling well. She has a little bit of chest pain only. Because of this, she excused herself and she went to the restroom. Apparently, she has been there for some time and the was quite concerned, so he went to the bathroom and knocked on the door and she was not answering. Therefore, they called the restaurant homeowner association manager and the opened the door. She was seen to be unconscious near the sink. She was pale. She was sweating. The patient yet remembered that she passed out, but she said that she was feeling very dizzy. Chest pain was not very bad and that is the last thing she remembered. There was no description of any seizure. She was brought to the hospital and was seen in the Emergency Room. In the Emergency Room, she started to wake up. She complained only of a slight shortness of breath and some chest pain, but no other symptoms. A very important part of the history was that 1-1/2 hours years ago, she had passed out also. She was brought to the hospital. She said she was tested, but she did not know the tests. She was told that she had a blood clot in the lungs and that was the one that caused her to pass out because of lack of oxygen. We do not know how she was treated, but apparently she was given some kind of blood thinner, but she stopped this and she has not had any problem for the last 1-1/2 years until yesterday. Her other complaints include intermittent dizziness, some occasional chest pain, they were not that bad, slight shortness of breath, soreness of the legs. No abdominal pain. No leg claudication. She has no obvious rashes or bruises in her skin. No nose bleeding. No history that might suggest a stroke. She said that the doctor who saw her told her that she has a blood clot in the lungs. REVIEW OF NEUROLOGIC SYSTEM: None really other than the cardiopulmonary symptoms. Only dizziness. PAST MEDICAL HISTORY: She has low thyroid, treatment not being done. She had this passing of the spell and was diagnosed to be due to a blood clot in the lung, followup not done. She had not seen any physician thereafter. She has no other problems. No history of stroke. PAST SURGICAL HISTORY: None. SOCIAL HISTORY: She is . She is a housewife. She denied smoking. She does not drink alcoholic beverages. She does not take drugs, especially cocaine. She is not on control pill. FAMILY HISTORY: No similar problem, but her daughter said that most of her family members usually complain of soreness in the legs. ALLERGIES: None is known. PHYSICAL EXAMINATION: GENERAL: Revealed a well-developed, well-nourished, very pleasant lady. She is not obese, but slightly on the heavyset side. VITAL SIGNS: Her blood pressure revealed to be 109/70, heart rate 71. The patient is afebrile. Saturation was good. HEAD, EYES, EARS, NOSE AND THROAT: Unremarkable. No intracranial or intraorbital bruise. NECK: Supple. No carotid bruit. HEART: Regular rate and rhythm, no murmur. LUNGS: Sounds clear, but there seems to be slight decreased breath sound or it was just voluntary decreased breathing. ABDOMEN: Soft. EXTREMITIES: Appeared to be normal externally, but she seemed to have some bump, feeling like a lipoma in the posterior upper arms and I saw also throughout on her legs. Skin looks normal. Peripheral pulsation was felt. She has slight tenderness in both the calf muscle, but she has negative Homans sign. NEUROLOGIC: Reveals the following. Mental Status: Normal. Cranial nerve examination is normal. Fundi looks benign. No visual field cut. MOTOR EXAMINATION: 5/5 strength in the upper extremities, 5/5 strength in her lower extremities. Sensory testing was normal including skin sensation. Position sense and vibration. Reflexes symmetrical on both sides. No Babinski. Gait was normal. Coordination intact, [id number]-[id number] and hecc-ls-[id number] and walking. CLINICAL IMPRESSION: 1. This patient has episodes of syncope. I think this could be related to hypoxia. It appears that this patient has a history of possible pulmonary embolism, non-fatal at this time. She did have a history about 1-1/2 years ago and then this time, but all of this history and I could not confirm this. There are no positive physical findings to suggest that she did have any blood clot in the lungs. 2. Therefore, the syncope is just hypoxic or presyncope. 3. The problem is, why is this patient is having frequent blood clot last, previous one was 1-1/2 years ago and the last one was yesterday over this admission. 4. The patient has no clinical evidence of cerebrovascular accident. Her overall neurological examination was normal. RECOMMENDATIONS: 1. We will check what medications she was taking and confirm. 2. The laboratory testing done. She probably should have a CT scan of the chest to confirm pulmonary embolization. 3. CT scan of the brain at least. 4. I do not think she has seizures such that an EEG will not be helpful. 5. She was started on blood thinner and I believe this should be continued. 6. She should have a 2D echo and as mentioned at least lung scan either together or isolated from the CAT scan of the lungs. 7. This patient has to be continued on the anticoagulant at this time. 8. A Pulmonary consultation is necessitated by the unknown course of the clot, if ever she has this. 9. This patient was given precautions about the ____ passing out, especially when doing activities such as driving. Therefore, I advised her not to drive, however. Therefore, ____ there is a law in [place], the patient should be reported to the Department of Motor Vehicle. Apparently, this patient has to be followed in case she is discharged because of being clinically better, but I discussed with them that this condition if ever this is pulmonary clot is a serious disease. 75 minutes involved in the history and physical examination and more than 50% involved in the evaluation and coordination of care. Thank you for this referral. JOB# [id number] DEDE/ADELAIDE
[2018-03-22] MEDS: LOVENOX SUB-Q SCH (10:26)
--- NOTE | 2018-03-22 11:40 | Progress Note ---
Assessment and Plan Assessment: Recurrent syncope / ? TIA / ? seizure - head CT with no acute findings H/o DVT and PE - chest CTA negative for PE ? h/o antiphospholipid antibody syndrome - pt stopped taking anticoagulation 1.5 years ago Plan: Echo reviewed - EF 60-65%, trace MR, mild TR. Neurology consultation noted. Seizure is not suspected per neurology. Currently stable cardiac status. Pt may discharge home from cardiology standpoint. Recommend follow up in our office with Dr. Cardenas within 1-2 weeks of hospital discharge ([phone]). Pt states she will call and make her own appointment. The patient has been seen in conjunction with Dr. Cardenas who agrees with the assessment and plan of care. Subjective Date of service: 03/22/18 Principal diagnosis: syncope Interval history: pt resting comfortably in bed, c/o some difficulty swallowing this AM due to throat soreness and some throat burning. tele reviewed - no arrhythmias noted overnight. Objective Last Vital Signs Temp 98.4 F 03/22/18 08:14 Pulse 63 03/22/18 11:00 Resp 18 03/22/18 08:14 BP 98/57 03/22/18 08:14 Pulse Ox 97 03/22/18 08:14 - Physical Examination General: No Apparent Distress HEENT: Positive: PERRL, Normocephaly, Mucus Membranes Moist Neck: Positive: neck supple, trachea midline Cardiac: Positive: Reg Rate and Rhythm, S1/S2 Lungs: Positive: clear to auscultation Neuro: Positive: Grossly Intact Abdomen: Positive: Soft. Negative: Tender Skin: Positive: Clear. Negative: Rash, Wound Musculoskeletal: No Fluid Collection, No Pain, Normal Range of Motion Extremities: Absent: edema - Imaging and Cardiology EKG: report reviewed, image reviewed Echo: report reviewed - Telemetry EKG Rhythm: Sinus Rhythm
[2018-03-22 12:09] VITALS: BP 113/72
--- NOTE | 2018-03-22 12:49 | Discharge Summary ---
Providers - Providers Date of Admission: 03/20/18 22:45 Attending physician: SHANEL GARCIA MD 03/20/18 22:45 Consult to Physician [CONS] Routine Comment: Consulting Provider: ADITHYA CROCKER Physician Instructions: Reason For Exam: syncope 03/21/18 11:18 Consult to Physician [CONS] Routine Comment: Consulting Provider: NOHEMY HOLDEN Physician Instructions: Reason For Exam: syncope Primary care physician: COLON THERAPIST Hospitalization Reason for admission: SYNCOPE Condition: Stable Hospital course: 37-year-old, history of DVT, PE, recurrent syncope in the past comes emergency room physician was at a restaurant and did not feel well. She went to the bathroom and had a syncopal episode, the stated that lasted for at least 30 minutes. Also complaining of pain in her epigastric area which she describes a sharp pain, constant, intensity 4/10, no radiation, she can identify exacerbating or relieving factor. Patient states she had not had any syncopal episodes since the last 2 years. Denies vomiting, diaphoresis, palpitation, nausea. Patient was seen by cardiology and neurology, Lab findings indicated Subclincal Hypothyroidsim for which outpatient follow up was recommended. Review of record indicates that the patient possibly has a history of antiphospholipid antibody syndrome was on anticoagulation stopped at 1.5 years ago. She also had a history of DVT and PE CTA done during this admission was negative. Neurology did not feel that this was seizure. Recommendations of the patient, discharged home on full up with cardiology outpatient and also with neurology. Head CT showed no acute findings. No [facility] at this time I also did recommend a hematology evaluation explained to the patient and included on discharge form. No evidence of TIA or stroke I advised the patient against driving until seen by Monie by primary care physician she verbalized understanding. While ideally the pt should be restarted on coumadin, she has sustained many head trauma with her falls and syncope and I have advised that anticoagulation needs to be reviewed with pcp and hematology. No clinical evidence of hypoxia was noted during this hospitalization Recurrent syncope Epigastric abdominal pain Hyperglycemia Subclinical hypothyroidism Recurrent syncope H/o DVT and PE - chest CTA negative for PE PRESUMED h/o antiphospholipid antibody syndrome H/o medical noncompliance Disposition: TO HOME OR SELFCARE Time spent for discharge: 35 MINS Core Measure Documentation - Palliative Care Palliative Care/ Comfort Measures: Not Applicable - Core Measures Any of the following diagnoses?: none - VTE Discharge Requirements Deep Vein Thrombosis/Pulmonary Embolism Present on Admission: No Exam - Physical Exam Narrative exam: VITAL SIGNS: Reviewed. GENERAL: The patient appeared well nourished and normally developed. Vital signs as documented. HEAD: No signs of head trauma. EYES: Pupils are equal. Extraocular motions intact. EARS: Hearing grossly intact. MOUTH: Oropharynx is normal. NECK: No adenopathy, no JVD. CHEST: Chest with clear breath sounds bilaterally. No wheezes, rales, or rhonchi. CARDIAC: Regular rate and rhythm. S1 and S2, without murmurs, gallops, or rubs. VASCULAR: No Edema. Peripheral pulses normal and equal in all extremities. ABDOMEN: Soft, without detectable tenderness. No sign of distention. No rebound or guarding, and no masses palpated. Bowel Sounds normal. MUSCULOSKELETAL: Good range of motion of all major joints. Extremities without clubbing, cyanosis or edema. NEUROLOGIC EXAM: Alert and oriented x 3. No focal sensory or strength deficits. Speech normal. Follows commands. PSYCHIATRIC: Mood normal. SKIN: No rash or lesions. - Constitutional Vitals: Temp Pulse Resp BP Pulse Ox 98.2 F 63 18 113/72 96 03/22/18 10:56 03/22/18 11:00 03/22/18 10:56 03/22/18 10:56 03/22/18 10:56 Plan Activity: no driving until cleared by PCP (SECONDARY TO RECURRENT SYNCOPE), fall precautions, other (NO DIVING) Diet: low fat Special Instructions: record blood sugar diary Follow up with: JOSELO SANTANA DO [Staff Physician] - 7 Days MARLO KATZ MD [Staff Physician] - 7 Days BISI ROBLERO MD [Staff Physician] - 7 Days DEE ARMENTA MD [Primary Care Provider] - 3-5 Days FRANC HUSAIN MD [Staff Physician] - 7 Days
== END 2018-03-22 17:30 | disposition home or self-care (01) | DRG 312 ==
LOC: ED 18:26 → 4A 22:45
PROVIDERS: ADMIT Internal Medicine; ATTEND Internal Medicine
DX: R55 Syncope and collapse (principal); D68.61 Antiphospholipid syndrome; R10.9 Unspecified abdominal pain; E02 Subclinical iodine-deficiency hypothyroidism; E11.65 Type 2 diabetes mellitus with hyperglycemia; Z86.718 Personal history of other venous thrombosis and embolism; Z86.711 Personal history of pulmonary embolism; Z79.82 Long term (current) use of aspirin; Z79.899 Other long term (current) drug therapy; Z90.49 Acquired absence of other specified parts of digestive tract; Z82.49 Family history of ischemic heart disease and other diseases of the circulatory system
CPT/HCPCS: 36415; 70450; 71275; 80048; 80053; 80307; 80320; 81001; 82550; 82553; 82962; 83036; 84439; 84443; 84484; 84702; 85025; 85379; 93005; 93010; 93306; G0480; J1650; J1885; J2405; J7030; Q9967

== ENCOUNTER 2021-08-22 04:33 | Emergency (ER) | payer OTHER ==
[2021-08-22] MEDS ORDERED: MORPHINE 4 MG/1 ML INJ IV ONE (04:47)
[2021-08-22] MEDS ORDERED: ONDANSETRON 4 MG/2 ML INJ IV ONE (04:47)
[2021-08-22] MEDS ORDERED: SODIUM CHLORIDE 0.9% 1000 ML 1,000 ML IV ONE (04:47)
--- NOTE | 2021-08-22 04:50 | Emergency Department Report ---
HPI - General Chief Complaint: Abdominal Pain Time Seen by Provider: 08/22/21 04:45 - HPI HPI: 40-year-old female presents to the emergency department via EMS from home with complaint of a 3-day history of progressively worsening lower abdominal pain that radiates around to the bilateral flank and back. It is currently associated with some nausea without vomiting. She denies any dysuria, vaginal bleeding or discharge, hematuria, fever, constipation or diarrhea. She has a past medical history of multiple previous PEs and DVTs, antiphospholipid syn drome, hypothyroidism, and she has a surgical history of a previous appendectomy. She has not taken anything for symptoms prior to presentation. She says that the abdominal pain is currently 10 out of 10 in intensity. No known aggravating or alleviating factors. No recent travel or sick contacts at home. ED Past Medical Hx - Past Medical History Hx Hypertension: No Hx Congestive Heart Failure: No Hx Diabetes: Yes (gestational) Hx Deep Vein Thrombosis: No Hx Renal Disease: No Hx Sickle Cell Disease: No Hx Seizures: No Hx Asthma: No Hx COPD: No Hx HIV: No Additional medical history: DVT, pe. hypothyrodism - Social History Smoking Status: Never Smoker - Medications Home Medications: Home Medications Medication Instructions Recorded Confirmed Last Taken Type HYDROcodone/APAP 5-325 [Grimes 1 each PO Q6HR PRN #12 tablet 08/22/21 Unknown Rx 5/325] Ondansetron [Zofran Odt] 4 mg PO Q8HR #20 tab.rapdis 08/22/21 Unknown Rx cephALEXin [Keflex] 500 mg PO Q12HR #14 cap 08/22/21 Unknown Rx ED Review of Systems ROS: Stated complaint: ABD PAIN Other details as noted in HPI Comment: All other systems reviewed and negative Constitutional: denies: chills, fever Eyes: denies: eye pain, vision change ENT: denies: ear pain, throat pain Respiratory: denies: cough, shortness of breath Cardiovascular: denies: chest pain, palpitations Gastrointestinal: abdominal pain, nausea. denies: vomiting Genitourinary: denies: dysuria, discharge Musculoskeletal: denies: back pain, arthralgia Skin: denies: rash, lesions Neurological: denies: headache, weakness Physical Exam - Physical Exam Vital Signs: Vital Signs 08/22/21 04:37 Temperature 98.7 F Pulse Rate 95 H Respiratory 16 Rate Blood Pressure 124/99 [Left] O2 Sat by Pulse 98 Oximetry Physical Exam: GENERAL: The patient is well-developed well-nourished. HENT: Normocephalic. Atraumatic. Patient has moist mucous membranes. EYES: Extraocular motions are intact. NECK: Supple. Trachea is midline. CHEST/LUNGS: Clear to auscultation. There is no respiratory distress noted. HEART/CARDIOVASCULAR: Regular. There is no tachycardia. There is no murmur. ABDOMEN: Abdomen is soft. There is reproducible lower abdominal tenderness to palpation. No guarding. Patient has normal bowel sounds. There is no abdominal distention. SKIN: Skin is warm and dry. NEURO: The patient is awake, alert, and oriented. The patient is cooperative. The patient has no focal neurologic deficits. Normal speech. MUSCULOSKELETAL: There is no tenderness or deformity. There is no limitation range of motion. BACK: There is bilateral CVA tenderness to palpation. ED Course Vital Signs 08/22/21 04:37 Temperature 98.7 F Pulse Rate 95 H Respiratory 16 Rate Blood Pressure 124/99 [Left] O2 Sat by Pulse 98 Oximetry ED Medical Decision Making - Lab Data Result diagrams: 08/22/21 04:59 08/22/21 04:59 - Medical Decision Making This patient presents with a 3-day history of lower abdominal pain that wraps around to the flank and back, as well as nausea without vomiting. Labs are mostly unremarkable except for a urinalysis that shows a significant UTI and hematuria. This patient was signed out to my colleague, Dr Fuentes, to follow the CT results and assist with disposition. CT of the abdomen and pelvis shows urethritis and a single pulmonary nodule. Patient was discharged home with antibiotics and pain medications and appropriate outpatient follow-up. Critical Care Time: No Critical care attestation.: If time is entered above; I have spent that time in minutes in the direct care of this critically ill patient, excluding procedure time. ED Disposition Clinical Impression: Urethritis, Pulmonary nodule Disposition: HOME / SELF CARE / HOMELESS Is pt being admited?: No Condition: Stable Instructions: Urethritis, Adult, Pulmonary Nodule, Abdominal Pain (ED) Additional Instructions: Please return if symptoms worsen Please follow-up with your primary care physician for the incidental finding of a pulmonary nodule for further imaging at a later date. This is a utmost importance and should be done within the next 3 to 6 months. Prescriptions: cephALEXin [Keflex] 500 mg PO Q12HR #14 cap HYDROcodone/APAP 5-325 [Grimes 5/325] 1 each PO Q6HR PRN #12 tablet PRN Reason: Pain Ondansetron [Zofran Odt] 4 mg PO Q8HR #20 tab.rapdis Referrals: PRIMARY CARE, [Primary Care Provider] - 3-5 Days Forms: STI Treatment and Prevention
[2021-08-22 05:23] LABS: Basophils # (Auto) 0.1 K/mm3 (0.0-0.1); Basophils % (Auto) 0.5 % (0.0-1.8); Eosinophils # (Auto) 0.1 K/mm3 (0.0-0.4); Eosinophils % (Auto) 0.9 % (0.0-4.3); Hematocrit 38.3 % (30.3-42.9); Hemoglobin 12.9 gm/dl (10.1-14.3); Lymphocytes # (Auto) 2.3 K/mm3 (1.2-5.4); Lymphocytes % (Auto) 23.1 % (13.4-35.0); Mean Corpuscular HGB Conc 34 % (30-34); Mean Corpuscular Volume 90 fl (79-97); Monocytes # (Auto) 0.6 K/mm3 (0.0-0.8); Monocytes % (Auto) 6.1 % (0.0-7.3); Platelet Count 284 K/mm3 (140-440); Red Blood Count 4.26 M/mm3 (3.65-5.03); Red Cell Distribution Width 13.1 % (13.2-15.2)
[2021-08-22 05:39] LABS: Bacteria,Urine 3+ /HPF (Negative); Bilirubin,Urine NEG (Negative); Blood,Urine LG (Negative); Color,Urine Yellow (Yellow); Urobilinogen,Urine < 2.0 mg/dL (<2.0)
[2021-08-22 05:43] LABS: RBC,Urine > 182.0 /HPF (0.0-6.0); WBC,Urine > 182.0 /HPF (0.0-6.0)
[2021-08-22 05:43] LABS: Alanine Aminotransferase 37 units/L (7-56); Blood Urea Nitrogen 12 mg/dL (7-17); Calcium 9.6 mg/dL (8.4-10.2); Hemolysis Index 4
[2021-08-22] MEDS ORDERED: cefTRIAXone/NS 1 GM/50 ML 1 GM/50 ML BAG IV ONE (05:44)
[2021-08-22 05:49] LABS: BUN/Creatinine Ratio 17; Bilirubin,Direct < 0.2 mg/dL (0-0.2)
--- NOTE | 2021-08-22 06:28 | Cat Scan Report ---
CT ABDOMEN AND PELVIS WITH IV CONTRAST INDICATION: Lower abdominal pain with radiation to the back. COMPARISON: None available. TECHNIQUE: All CT scans at this facility use dose modulation, automated exposure control, iterative reconstructi on or weight based dosing, when appropriate, to reduce radiation dose to as low as reasonably achieva ble. FINDINGS: Lung Bases: No acute abnormality. There is a punctate 4 mm subpleural nodule in the right lung base o n axial image 28. Skeletal System: No acute abnormality. ABDOMEN: Liver: No significant abnormality. Gallbladder: Removed. Bile Ducts: No significant abnormality. Adrenals: No significant abnormality. Right Kidney: No significant abnormality. There is mild enhancement of the right ureteral wall. Left Kidney: No significant abnormality. There is mild enhancement of the left ureteral wall. Pancreas: No significant abnormality. Spleen: No significant abnormality. Upper GI tract: No significant abnormality. Lymph Nodes: No significant adenopathy. Aorta: No significant abnormality. Additional Findings: There is a tiny fat-containing supraumbilical ventral hernia which may be relate d to a prior incision (axial image 55). PELVIS: Colon: No acute abnormality. Urinary Bladder and Distal Ureters: No significant abnormality. Appendix: No significant abnormality. Lymph Nodes: No significant adenopathy. Additional Findings: None. IMPRESSION: 1. Diffuse circumferential urothelial wall thickening involving both ureters consistent with ureteri tis. There is no CT evidence of pyelonephritis. 2. Additional incidental findings as above. 3. Single incidental pulmonary nodule(s) in the right lower lobe measuring 4 mm with solid characteri stics. - Recommendation according to Fleischner Society 2017 Guidelines: Low Risk Patient: No routine follow -up; High Risk Patient: Optional CT at 12 months. Signer Name: Nael Smith MD Signed: 08/22/2021 6:23 AM Workstation Name: [email or web address])-[id number]
[2021-08-22 07:29] VITALS: BP 107/58
== END 2021-08-22 08:31 | disposition home or self-care (01) ==
LOC: ED 04:33
DX: N34.2 Other urethritis (principal); R91.1 Solitary pulmonary nodule; R11.0 Nausea; D68.61 Antiphospholipid syndrome; E03.9 Hypothyroidism, unspecified; Z98.890 Other specified postprocedural states
CPT/HCPCS: 36415; 74177; 80048; 80076; 81001; 83690; 84703; 85025; 96361; 96365; 96375; 99284; J0696; J2270; J2405; J7030; Q9967